=== PATIENT | male | born 1965 | race Caucasian/White ===

== ENCOUNTER 2021-02-08 18:27 | Emergency (ER) | payer MEDICAID, MEDICARE ==
[2021-02-08] MEDS ORDERED: Sodium Chloride 0.9% 2.5 ML Syringe FLUSH PRN (18:32)
[2021-02-08] MEDS ORDERED: Sodium Chloride 0.9% 10 ML Syringe FLUSH PRN (18:32)
--- NOTE | 2021-02-08 18:42 | EDM.PDOC ---
<Rush Tipton - Last Filed: 02/08/21 22:19> ED HPI GENERAL MEDICAL PROBLEM - General Chief Complaint: Cardiovascular Problem Stated Complaint: CAN'T BREATH, CONGESTIVE HEART FAILURE Time Seen by Provider: 02/08/21 18:32 - Related Data Allergies Allergy/AdvReac Type Severity Reaction Status Date / Time shellfish derived Allergy Mild Airway Verified 02/08/21 18:43 Tightness Home Meds: Home Meds ALPRAZolam [Alprazolam] 0.5 mg PO TID 02/08/21 [History] Albuterol Sulfate [Proair Respiclick] 2 puff IN Q4H PRN 02/08/21 [History] Apixaban [Eliquis] 5 mg PO DAILY 02/08/21 [History] Aspirin [Vazalore] 81 mg PO DAILY 02/08/21 [History] Budesonide [Pulmicort] 0.5 mg IH DAILY 02/08/21 [History] Docusate Sodium [Colace Clear] 2 tab PO DAILY 02/08/21 [History] HYDROmorphone [Dilaudid] 2 mg PO Q4H PRN 02/08/21 [History] Insulin Degludec [Tresiba] 30 unit SUBCUT DAILY 02/08/21 [History] Losartan [Cozaar] 25 mg PO DAILY 02/08/21 [History] Metoprolol Succinate [Toprol XL] 25 mg PO DAILY 02/08/21 [History] Morphine [Morphine 20 MG/ML Soln] 2.5 ml PO Q4H PRN 02/08/21 [History] Nitroglycerin [Nitrostat] 0.4 mg PO TID PRN 02/08/21 [History] Ranolazine [Ranolazine ER] 500 mg PO DAILY 02/08/21 [History] Torsemide 20 mg PO DAILY 02/08/21 [History] Zolpidem [Ambien] 5 mg PO DAILY 02/08/21 [History] amLODIPine [Norvasc] 5 mg PO DAILY 02/08/21 [History] atorvaSTATin [Lipitor] 80 mg PO DAILY 02/08/21 [History] ED ROS GENERAL - Review of Systems Review Of Systems: See Below ED EXAM, GENERAL - Physical Exam Exam: See Below Course - Re-Assessments/Exams Free Text/Narrative Re-Assessment/Exam: 02/08/21 22:19 Patient was signed to me by the nurse practitioner. Patient has downtrending troponins he remains chest pain-free. Patient will be discharged to follow-up for possible outpatient stress test. He was seen in [place] but states that he may want to change his care to here to we will provide him follow-up with cardiology but also told him to try to contact his cardiology in [place] as well. Departure - Departure Time of Disposition: 22:19 Disposition: Home, Self-Care 01 Condition: Good Clinical Impression: Chest pain, CHF (congestive heart failure) Instructions: Shortness of Breath, Adult, [id number], Nonspecific Chest Pain, Adult Referrals: PCP,Not In Area [Primary Care Provider] - Forms: ED Department Discharge Additional Instructions: The following information is given to patients seen in the emergency department who are being discharged to home. This information is to outline your options for follow-up care. We provide all patients seen in our emergency department with a follow-up referral. The need for follow-up, as well as the timing and circumstances, are variable depending upon the specifics of your emergency department visit. If you don't have a primary care physician on staff, we will provide you with a referral. We always advise you to contact your personal physician following an emergency department visit to inform them of the circumstance of the visit and for follow-up with them and/or the need for any referrals to a consulting specialist. The emergency department will also refer you to a specialist when appropriate. This referral assures that you have the opportunity for follow-up care with a specialist. All of these measure are taken in an effort to provide you with optimal care, which includes your follow-up. Under all circumstances we always encourage you to contact your private physician who remains a resource for coordinating your care. When calling for follow-up care, please make the office aware that this follow-up is from your recent emergency room visit. If for any reason you are refused follow-up, please contact the [facility] Emergency Department at and asked to speak to the emergency department charge nurse. Please follow up with your primary care physician. If you do not have a primary care physician, see below: [facility] [address] [place] [address] [phone] My [facility] [address] [place] [address] Cardiac Rehabilitation at [facility] [address] [place] [address] You were seen today for shortness of breath and chest pain. You had some elevation in troponins but they were downtrending upon your discharge. We spoke to cardiology about you because you stated you are not a candidate to have any a dditional stents placed. He states he would like to follow-up here in [place] as opposed to [place]. Above is our number to her muffler mechanic as you can call also try to call and get a primary care appointment here as well. If you not obtain follow-up sometime this week please also call your muffler mechanic in [place]. Complete continue to take your water pill the Lasix daily. If any other concerning signs or symptoms please return to the ED immediately. <Paola Kaufman E - Last Filed: 02/09/21 10:21> ED HPI GENERAL MEDICAL PROBLEM - General Source of Information: Reports: Patient History Limitations: Reports: No Limitations - History of Present Illness INITIAL COMMENTS - FREE TEXT/NARRATIVE: HISTORY AND PHYSICAL: History of present illness: Patient is a 55-year-old male who presents to the emergency room with complaints of shortness of breath, cough and weight gain. Patient has a past medical history of stroke, SC, cardiac stents, and congestive heart failure. He states 2 weeks ago he was seen at [facility] for shortness of breath, cough and chest pain. He stated he had an NSTEMI and was transferred to [facility]. He weighed himself before transfer to [place] and was 208 lbs, today he is 218 lbs with lower extremity swelling. He states he received a lot of IV fluids while at [facility]. He states his has been adjusting his Lasix although it has not helped much with his swelling or weight. Patient states he has had a cough over the past 20 days with increased in shortness of breath over the past 2 to 3 days, was given prednisone and Tessalon Perles while in [place]. Patient states he has not had any chest pain in 3 to 4 days. Patient denies any fever, chills, headache, change in vision, syncope or near syncope. Denies any abdominal pain, nausea, vomiting, diarrhea, constipation or dysuria. Has not noted any blood in urine or stool. Patient has been eating and drinking appropriately. Patient does take Eliquis and aspirin daily. Review of systems: As per history of present illness and below otherwise all systems reviewed and negative. Past medical history: As per history of present illness and as reviewed below otherwise noncontributory. Surgical history: As per history of present illness and as reviewed below otherwise noncontributory. Social history: See social history for further information Family history: As per history of present illness and as reviewed below otherwise noncontributory. Physical exam: General: Well developed and well nourished 55 year old male. Alert and orientated x 3. Nontoxic in appearance and in no acute distress. Vital signs are stable and have been reviewed by me. Nursing notes were reviewed. HEENT: Atraumatic, normocephalic, pupils equal and reactive bilaterally, negative for conjunctival pallor or scleral icterus, mucous membranes moist, trachea midline. No drooling or trismus noted. No meningeal signs. No hot potato voice noted. Lungs: Diminished with fine expiratory wheezing to auscultation bilaterally. No rales, or rhonchi. Chest nontender. Moderate work of breathing, becomes breathless with talking and any type of exertion. Dry nonproductive cough noted. Heart: S1S2, regular rate and rhythm without overt murmur, gallops, or rubs. No JVD. Abdomen: Soft, nondistended, nontender. Normoactive bowel sounds. Negative for masses or costovertebral tenderness. Skin: Intact, warm, dry. No lesions or rashes noted. Hematologic: No petechiae or purpra. Mucosa appropriate color and normal nail bed color and refill. Extremities: Atraumatic, moves all extremities per self without difficulty or deficits, negative for cords or calf pain. Neurovascular unremarkable. +2 pitting edema bilaterally. +CMS bilaterally. Neuro: Awake, alert, oriented. Cranial nerves II through XII unremarkable. Cerebellum unremarkable. Motor and sensory unremarkable throughout. Exam nonfocal. Psychiatric: Mood and affect are appropriate. Normal thought process. Answering questions appropriately. Please note that the patient was seen and evaluated during the 2019 SARS-CoV-2 novel coronavirus pandemic period. Community viral transmission is ongoing at time of this encounter and the emergency department is operating under pandemic response procedures. Medical Decision Making: Patient is a 55-year-old male who presents to the emergency room with complaints of shortness of breath and cough. Does have a history of congestive heart failure with a recent weight gain of 10 pounds. He does have bilateral lower extremity swelling, has been increasing his Lasix to help get rid of the extra fluid although feels it is not helping. Patient is currently vitally stable. We will do basic lab work along with cardiac enzymes. Chest x-ray shows pulmonary vascular congestion. Patient's troponin is elevated at 0.151. I did inform the patient of his elevated troponin level, he states he is not surprised as he had an elevated troponin II weeks ago. He states he was transferred to [facility] for an NSTEMI. He was told by the muffler mechanic that they were unable to apply any more stents. His medications were adjusted and started on Eliquis. Patient's elevated troponin today could be due to his previous SC, and downtrending. We discussed transfer versus monitoring his troponin again in a few hours, he would prefer that route at this time. 2000: Spoke with Dr Rice, muffler mechanic on-call at [facility] in [place] about this patient. We reviewed this patient's case along with diagnostic results. He is agreeable that this patient can get a repeat troponin. He recommends the IV Lasix. If patient's troponin is downtrending he should have a scheduled outpatient stress test. If the troponin continues to elevate to call him back for further discussion. I did talk with the patient about this plan of care wh ch he is preferable/agreeable. Continues to be chest pain-free. Vital signs are stable. 2200: Repeat troponin result pending. Signed patient out to Dr Tipton, who will assume care and disposition appropriately. Diagnostics: CBC, CMP, Troponin, EKG, CXR, BNP, [employer]: Lasix 40 IV Impression: Elevated Troponin CHF exacerbation Definitive disposition and diagnosis as appropriate pending reevaluation and review of above. Duration: Day(s): Location: Reports: Chest Course - Vital Signs Last Recorded V/S: Last Vital Signs Temp 97.6 F 02/08/21 22:19 Pulse 95 02/08/21 22:19 Resp 20 02/08/21 22:19 BP 151/105 H 02/08/21 22:19 Pulse Ox 92 L 02/08/21 22:29 - Orders/Labs/Meds Orders: Active Orders 24 hr Category Date Time Status Saline Lock Insert [OM.PC] Stat Oth 02/08/21 18:32 Ordered Labs: Laboratory Tests 02/08/21 02/08/21 02/08/21 Range/Units 18:45 18:45 18:45 WBC 10.21 (4.0-11.0) K/uL RBC 4.65 (4.50-5.90) M/uL Hgb 13.4 (13.0-17.0) g/dL Hct 41.0 (38.0-50.0) % MCV 88.2 (80.0-98.0) fL MCH 28.8 (27.0-32.0) pg MCHC 32.7 (31.0-37.0) g/dL RDW Std Deviation 50.3 (28.0-62.0) fl RDW Coeff of Scott 16 H (11.0-15.0) % Plt Count 258 (150-400) K/uL MPV 11.00 (7.40-12.00) fL Neut % (Auto) 93.1 H (48.0-80.0) % Lymph % (Auto) 5.7 L (16.0-40.0) % [place] % (Auto) 1.1 (0.0-15.0) % Eos % (Auto) 0.0 (0.0-7.0) % Baso % (Auto) 0.1 (0.0-1.5) % Neut # (Auto) 9.5 H (1.4-5.7) K/uL Lymph # (Auto) 0.6 (0.6-2.4) K/uL [place] # (Auto) 0.1 (0.0-0.8) K/uL Eos # (Auto) 0.0 (0.0-0.7) K/uL Baso # (Auto) 0.0 (0.0-0.1) K/uL Nucleated RBC % 0.0 /100WBC Nucleated RBCs # 0 K/uL Sodium 135 L (136-148) mmol/L Potassium 5.1 (3.5-5.1) mmol/L Chloride 99 (98-107) mmol/L Carbon Dioxide 29.2 (21.0-32.0) mmol/L BUN 26 H (7.0-18.0) mg/dL Creatinine 1.2 (0.8-1.3) mg/dL Est Cr Clr Drug Dosing 60.50 mL/min Estimated GFR (MDRD) > 60.0 ml/min Glucose 323 H (74-106) mg/dL Lactic Acid (0.4-2.0) mmol/L Calcium 8.5 (8.5-10.1) mg/dL Total Bilirubin 0.6 (0.2-1.0) mg/dL AST 32 (15-37) IU/L ALT 46 (14-63) IU/L Alkaline Phosphatase 122 H (46-116) U/L Troponin I 0.151 H* (0.000-0.056) ng/mL B-Natriuretic Peptide (<100) PG/ML Total Protein 6.7 (6.4-8.2) g/dL Albumin 3.1 L (3.4-5.0) g/dL Globulin 3.6 (2.6-4.0) g/dL Albumin/Globulin Ratio 0.9 (0.9-1.6) SARS-CoV-2 RNA (DEA) NEGATIVE (NEGATIVE) Group A Strep (PCR) (NOT DETECT) 02/08/21 02/08/21 02/08/21 Range/Units 18:45 18:53 19:55 WBC (4.0-11.0) K/uL RBC (4.50-5.90) M/uL Hgb (13.0-17.0) g/dL Hct (38.0-50.0) % MCV (80.0-98.0) fL MCH (27.0-32.0) pg MCHC (31.0-37.0) g/dL RDW Std Deviation (28.0-62.0) fl RDW Coeff of Scott (11.0-15.0) % Plt Count (150-400) K/uL MPV (7.40-12.00) fL Neut % (Auto) (48.0-80.0) % Lymph % (Auto) (16.0-40.0) % Stan[place] % (Auto) (0.0-15.0) % Eos % (Auto) (0.0-7.0) % Baso % (Auto) (0.0-1.5) % Neut # (Auto) (1.4-5.7) K/uL Lymph # (Auto) (0.6-2.4) K/uL Stan[place] # (Auto) (0.0-0.8) K/uL Eos # (Auto) (0.0-0.7) K/uL Baso # (Auto) (0.0-0.1) K/uL Nucleated RBC % /100WBC Nucleated RBCs # K/uL Sodium (136-148) mmol/L Potassium (3.5-5.1) mmol/L Chloride (98-107) mmol/L Carbon Dioxide (21.0-32.0) mmol/L BUN (7.0-18.0) mg/dL Creatinine (0.8-1.3) mg/dL Est Cr Clr Drug Dosing mL/min Estimated GFR (MDRD) ml/min Glucose (74-106) mg/dL Lactic Acid 1.2 (0.4-2.0) mmol/L Calcium (8.5-10.1) mg/dL Total Bilirubin (0.2-1.0) mg/dL AST (15-37) IU/L ALT (14-63) IU/L Alkaline Phosphatase (46-116) U/L Troponin I (0.000-0.056) ng/mL B-Natriuretic Peptide 361 H (<100) PG/ML Total Protein (6.4-8.2) g/dL Albumin (3.4-5.0) g/dL Globulin (2.6-4.0) g/dL Albumin/Globulin Ratio (0.9-1.6) SARS-CoV-2 RNA (DEA) (NEGATIVE) Group A Strep (PCR) NOT DETECTED (NOT DETECT) 02/08/21 Range/Units 21:30 WBC (4.0-11.0) K/uL RBC (4.50-5.90) M/uL Hgb (13.0-17.0) g/dL Hct (38.0-50.0) % MCV (80.0-98.0) fL MCH (27.0-32.0) pg MCHC (31.0-37.0) g/dL RDW Std Deviation (28.0-62.0) fl RDW Coeff of Scott (11.0-15.0) % Plt Count (150-400) K/uL MPV (7.40-12.00) fL Neut % (Auto) (48.0-80.0) % Lymph % (Auto) (16.0-40.0) % [place] % (Auto) (0.0-15.0) % Eos % (Auto) (0.0-7.0) % Baso % (Auto) (0.0-1.5) % Neut # (Auto) (1.4-5.7) K/uL Lymph # (Auto) (0.6-2.4) K/uL [place] # (Auto) (0.0-0.8) K/uL Eos # (Auto) (0.0-0.7) K/uL Baso # (Auto) (0.0-0.1) K/uL Nucleated RBC % /100WBC Nucleated RBCs # K/uL Sodium (136-148) mmol/L Potassium (3.5-5.1) mmol/L Chloride (98-107) mmol/L Carbon Dioxide (21.0-32.0) mmol/L BUN (7.0-18.0) mg/dL Creatinine (0.8-1.3) mg/dL Est Cr Clr Drug Dosing mL/min Estimated GFR (MDRD) ml/min Glucose (74-106) mg/dL Lactic Acid (0.4-2.0) mmol/L Calcium (8.5-10.1) mg/dL Total Bilirubin (0.2-1.0) mg/dL AST (15-37) IU/L ALT (14-63) IU/L Alkaline Phosphatase (46-116) U/L Troponin I 0.145 H* (0.000-0.056) ng/mL B-Natriuretic Peptide (<100) PG/ML Total Protein (6.4-8.2) g/dL Albumin (3.4-5.0) g/dL Globulin (2.6-4.0) g/dL Albumin/Globulin Ratio (0.9-1.6) SARS-CoV-2 RNA (DEA) (NEGATIVE) Group A Strep (PCR) (NOT DETECT) Meds: Medications Discontinued Medications Generic Name Dose Route Start Last Admin Trade Name Ildefonso PRN Reason Stop Dose Admin Aspirin 324 mg 02/08/21 20:11 02/08/21 20:42 Aspirin 81 Mg Tab.Chew PO 02/08/21 20:12 324 mg ONETIME ONE Administration Furosemide 40 mg 02/08/21 20:06 02/08/21 20:42 Furosemide 40 Mg/4 Ml Vial IVPUSH 02/08/21 20:07 40 mg NOW ONE Administration Sodium Chloride 10 ml 02/08/21 18:32 02/08/21 19:56 Sodium Chloride 0.9% 10 Ml Syringe FLUSH 10 ml ASDIRECTED PRN Administration Keep Vein Open Sodium Chloride 2.5 ml 02/08/21 18:32 02/08/21 19:56 Sodium Chloride 0.9% 2.5 Ml Syringe FLUSH 2.5 ml ASDIRECTED PRN Administration Keep Vein Open Sepsis Event Note (ED) - Focused Exam Vital Signs: Vital Signs Pulse Ox 02/08/21 22:29 92 L - My Orders Last 24 Hours: My Active Orders 02/08/21 18:32 Saline Lock Insert [OM.PC] Stat - Assessment/Plan Last 24 Hours: My Active Orders 02/08/21 18:32 Saline Lock Insert [OM.PC] Stat
[2021-02-08 19:26] LABS: BLOOD UREA NITROGEN,BUN 26 mg/dL (7.0-18.0); CARBON DIOXIDE,CO2 29.2 mmol/L (21.0-32.0); CHLORIDE,CL 99 mmol/L (98-107); GLUCOSE RANDOM 323 mg/dL (74-106); POTASSIUM,K 5.1 mmol/L (3.5-5.1); SODIUM,NA 135 mmol/L (136-148)
[2021-02-08] MEDS ORDERED: Furosemide 40 MG/4 ML VIAL IVPUSH ONE (20:06)
--- NOTE | 2021-02-08 20:08 | PCM.EKG ---
#1 Interpretation EKG Date: 02/08/21 Time: 18:36 Rhythm: NSR Rate (Beats/Min): 97 ST-T: Depressed
[2021-02-08] MEDS ORDERED: Aspirin 81 MG Tab.Chew PO ONE (20:11)
--- NOTE | 2021-02-08 20:11 | CR ---
HISTORY: Shortness breath. CHF. TECHNIQUE: Portable frontal view the chest. COMPARISON: Chest x-ray 01/12/2013. FINDINGS: No airspace consolidation. No pleural effusion or pneumothorax. Pulmonary vascular congestion. Cardiomediastinal silhouette is within normal limits for technique. Sternal wires. IMPRESSION: Pulmonary vascular congestion. Dictated by Steven Rai MD @ 02/08/2021 8:09:34 PM (Electronically Signed)
[2021-02-08 22:21] VITALS: BP 151/105; PULSE 95
== END 2021-02-08 22:34 | disposition home or self-care (01) ==
LOC: MW.ED 18:27
DX: I50.9 Heart failure, unspecified (principal); R79.89 Other specified abnormal findings of blood chemistry; I25.2 Old myocardial infarction; Z91.013 Allergy to seafood; Z79.01 Long term (current) use of anticoagulants; Z79.899 Other long term (current) drug therapy; Z20.822 Contact with and (suspected) exposure to COVID-19
CPT/HCPCS: 36415; 71045; 80053; 83605; 83880; 84484; 85025; 87651; 93005; 96374; 99285; A9270; J1940; U0002